=== PATIENT | female | born 1975 | race Caucasian/White ===

== ENCOUNTER 2017-06-13 01:12 | Emergency (ER) | payer SELFPAY ==
[2017-06-13] MEDS ORDERED: Alum Hydrox/Mag Hydrox/Simeth 15 ML, Lidocaine 2% 15 ML PO ONE ×2 (01:29)
--- NOTE | 2017-06-13 01:36 | EDM.PDOC ---
ED HPI GENERAL MEDICAL PROBLEM - General Chief Complaint: Chest Pain Stated Complaint: UP SET STOMACH Time Seen by Provider: 06/13/17 01:20 Source of Information: Reports: Patient History Limitations: Reports: No Limitations - History of Present Illness INITIAL COMMENTS - FREE TEXT/NARRATIVE: 42-year-old female with recurring brief chest pains that have been occurring for several weeks, she has an appointment in 2 days to discuss this with her primary provider but tonight it was worse than usual so came in to have it checked. She started getting concerned that it may be cardiac related. The pain waxes and wanes, and recurs with burning substernally that lasts about 5 seconds and goes away. No shortness of breath, no nausea or vomiting. Tends to be worse when laying down and on an empty stomach. She tried some Tums earlier tonight and it didn't help much. 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: Endocrine/Metabolic History: Reports: Obesity/BMI 30+ - Infectious Disease History Infectious Disease History: Reports: Chicken Pox - Past Surgical History Female Surgical History: Reports: Section Social & Family History - Tobacco Use Smoking Status *Q: Current Every Day Smoker Years of Tobacco use: 25 Packs/Tins Daily: 1 - Caffeine Use Caffeine Use: Reports: Coffee, Energy Drinks, Soda - Recreational Drug Use Recreational Drug Use: No ED ROS GENERAL - Review of Systems Review Of Systems: See Below Constitutional: Denies: Fever, Chills Respiratory: Denies: Shortness of Breath, Cough Cardiovascular: Reports: Chest Pain GI/Abdominal: Reports: Abdominal Pain. Denies: Constipation, Diarrhea, Nausea, Vomiting : Reports: No Symptoms Skin: Reports: No Symptoms Neurological: Reports: No Symptoms ED EXAM, GENERAL - Physical Exam Exam: See Below Exam Limited By: No Limitations General Appearance: Alert, No Apparent Distress Throat/Mouth: Normal Inspection Respiratory/Chest: No Respiratory Distress, Lungs Clear Cardiovascular: Regular Rate, Rhythm GI/Abdominal: Soft, Tender (Some tenderness to palpation over the epigastric area, pain worsened when the patient laid down) Extremities: Normal Inspection Neurological: Alert, Oriented Course - Vital Signs Last Recorded V/S: Last Vital Signs Temp 98.6 F 06/13/17 01:19 Pulse 69 06/13/17 01:19 Resp 16 06/13/17 01:19 BP 114/52 L 06/13/17 01:19 Pulse Ox 97 06/13/17 01:19 - Orders/Labs/Meds Meds: Medications Discontinued Medications Generic Name Dose Route Start Last Admin Trade Name Sophia PRN Reason Stop Dose Admin Al Hydroxide/Mg Hydroxide 15 0 ml 06/13/17 01:29 06/13/17 01:35 ml/ Lidocaine HCl 15 ml PO 06/13/17 01:30 15 ml ONETIME ONE Administration Pantoprazole Sodium 40 mg 06/13/17 01:58 06/13/17 02:05 Protonix PO 06/13/17 01:59 40 mg ONETIME ONE Administration - Re-Assessments/Exams Free Text/Narrative Re-Assessment/Exam: 06/13/17 02:04 Patient was placed on a cardiac/vascular sonographer that showed normal sinus rhythm. She was reassured that this is not cardiac pain, and was given a GI cocktail. It did not take away her pain but an improvement. She was given 40 mg of Protonix orally, and told to keep her appointment with her primary provider tomorrow. Departure - Departure Time of Disposition: 02:15 Disposition: Home, Self-Care 01 Condition: Good Clinical Impression: Gastroesophageal reflux disease Qualifiers: Esophagitis presence: esophagitis presence not specified Qualified Code(s): K21.9 - Gastro-esophageal reflux disease without esophagitis - Discharge Information Instructions: Nonspecific Chest Pain, [id number] Referrals: PCP,None [Primary Care Provider] - Forms: ED Department Discharge Care Plan Goals: Keep your appointment tomorrow with your primary provider. I would recommend daily Prilosec for at least 2-3 weeks but you can discuss this at your appointment.
[2017-06-13] MEDS ORDERED: Pantoprazole 40 MG Tab.CR PO ONE (01:58)
== END 2017-06-13 02:15 | disposition home or self-care (01) ==
LOC: JP.ED 01:12
DX: K21.9 Gastro-esophageal reflux disease without esophagitis (principal); E66.9 Obesity, unspecified; F17.210 Nicotine dependence, cigarettes, uncomplicated; Z68.36 Body mass index [BMI] 36.0-36.9, adult
CPT/HCPCS: 99285; A9270; 99284

== ENCOUNTER 2017-07-14 06:27 | Day surgery (SDC) | payer MEDICAID ==
[2017-07-14] MEDS ORDERED: Lactated Ringers 1,000 ML IV SCH (07:00)
[2017-07-14] MEDS ORDERED: fentaNYL 100 MCG/2 ML SDV ONE (07:30)
[2017-07-14] MEDS ORDERED: Propofol 200 MG/20 ML SDV ONE (07:30)
[2017-07-14] MEDS ORDERED: Midazolam 1 MG/ML 2 ML SDV ONE (07:30)
--- NOTE | 2017-07-14 09:33 | OR ---
DATE OF PROCEDURE: 07/14/2017 PREOPERATIVE DIAGNOSIS: Gastroesophageal reflux disease. POSTOPERATIVE DIAGNOSIS: Gastroesophageal reflux disease. PROCEDURE: Esophagogastroduodenoscopy with biopsy of gastroesophageal junction. ANESTHESIA: IV anesthesia with monitored anesthesia care. INDICATION: This 42-year-old white female is referred for upper endoscopy because of symptoms of gastroesophageal reflux disease. I counseled her for upper endoscopy with possible biopsy, including risks and alternatives, and she gave her informed consent to proceed. DESCRIPTION OF PROCEDURE: The patient was placed in the left lateral decubitus position. IV anesthesia was administered by the Anesthesia Service. Time-out was held. The flexible video Olympus upper endoscope was passed through her mouth, down her esophagus, and into her stomach. The scope was easily passed through the pylorus, into the duodenum, reaching its third portion. The scope was then slowly withdrawn, examining the mucosa throughout. The duodenal mucosa appeared unremarkable. The scope was brought back through the pylorus into the antrum. This appeared unremarkable. The scope was retroflexed. The proximal stomach appeared unremarkable, although, there was some bile present. The scope was straightened and brought up through the GE junction. This showed evidence of chronic inflammation. The Z-line was fairly straight. We did obtain biopsies of the gastroesophageal junction. The scope was then brought proximal through the remainder of the esophagus, which otherwise appeared unremarkable and it was removed. She tolerated the procedure well. Octaviano Almazan MD /[id number]
== END 2017-07-14 09:15 | disposition home or self-care (01) ==
LOC: JP.SDS 06:27
PROVIDERS: ATTEND Surgery
DX: K29.50 Unspecified chronic gastritis without bleeding (principal); K21.0 Gastro-esophageal reflux disease with esophagitis; J45.909 Unspecified asthma, uncomplicated; F41.9 Anxiety disorder, unspecified; F32.9 Major depressive disorder, single episode, unspecified; E66.9 Obesity, unspecified; F17.210 Nicotine dependence, cigarettes, uncomplicated
CPT/HCPCS: 43239; 81025; J2250; J2704; J3010; J7120; 88305

== ENCOUNTER 2017-11-29 23:00 | Emergency (ER) | payer BC, MEDICAID ==
--- NOTE | 2017-11-30 00:41 | EDM.PDOC ---
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 She was having some cramping and it was fairly heavy tonight so she called the phone nurse and she was advised to come in. Since that time it is calmed down, cramping is better. Bleeding has slowed down as well. 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 History: IUD Endocrine/Metabolic History: Reports: Obesity/BMI 30+ Dermatologic History: Reports: Eczema - Infectious Disease History Infectious Disease History: Reports: Chicken Pox - Past Surgical History Female Surgical History: Reports: Section, Other (See Below) Other Female Surgeries/Procedures: IUD Social & Family History - Tobacco Use Smoking Status *Q: Current Every Day Smoker Years of Tobacco use: 25 Packs/Tins Daily: 1 - Caffeine Use Caffeine Use: Reports: Coffee - Recreational Drug Use Recreational Drug Use: No ED ROS GENERAL - Review of Systems Review Of Systems: See Below Constitutional: Denies: Fever, Chills Respiratory: Denies: Shortness of Breath Cardiovascular: Denies: Chest Pain GI/Abdominal: Reports: Abdominal Pain (Lower abdomen has been cramping over the past 12 hours). Denies: Nausea, Vomiting Musculoskeletal: Reports: No Symptoms Neurological: Reports: No Symptoms ED EXAM, GENERAL - Physical Exam Exam: See Below Exam Limited By: No Limitations General Appearance: Alert, No Apparent Distress Respiratory/Chest: No Respiratory Distress GI/Abdominal: Tender (Some vague tenderness to palpation in the left lower quadrant, no guarding or rebound) Neurological: Alert, Oriented Skin Exam: Warm, Dry Course - Vital Signs Last Recorded V/S: Last Vital Signs Temp 97.9 F 11/29/17 23:59 Pulse 65 11/29/17 23:59 Resp 14 11/29/17 23:59 BP 120/76 11/29/17 23:59 Pulse Ox 97 11/29/17 23:59 - Orders/Labs/Meds Labs: Laboratory Tests 11/30/17 Range/Units 00:20 WBC 11.2 H (4.5-11.0) K/uL RBC 4.18 (3.30-5.50) M/uL Hgb 13.3 (12.0-15.0) g/dL Hct 39.6 (36.0-48.0) % MCV 95 (80-98) fL MCH 32 H (27-31) pg MCHC 34 (32-36) % Plt Count 310 (150-400) K/uL Neut % (Auto) 65 (36-66) % Lymph % (Auto) 26 (24-44) % Finney % (Auto) 6 (2-6) % Eos % (Auto) 2 (2-4) % Baso % (Auto) 0 (0-1) % - Re-Assessments/Exams Free Text/Narrative Re-Assessment/Exam: 11/30/17 00:39 CBC was drawn for baseline hemoglobin, white count was normal and hemoglobin was 13.3. She'll recheck in 24-48 hours if bleeding hasn't improving satisfactorily. I explained to her this was likely just an anovulatory cycle which can happen. Departure - Departure Time of Disposition: 00:53 Disposition: Home, Self-Care 01 Condition: Good Clinical Impression: Anovulatory (dysfunctional uterine) bleeding - Discharge Information Instructions: Dysfunctional Uterine Bleeding Referrals: PCP,None [Primary Care Provider] - Forms: ED Department Discharge Care Plan Goals: No reason for further treatment or workup unless bleeding persists for another 2 -3 days or worsens at any time. Activity as tolerated.
== END 2017-11-30 00:53 | disposition home or self-care (01) ==
LOC: JP.ED 23:00
DX: N93.9 Abnormal uterine and vaginal bleeding, unspecified (principal); F17.210 Nicotine dependence, cigarettes, uncomplicated; Z79.899 Other long term (current) drug therapy
CPT/HCPCS: 36415; 85025; 99284

== ENCOUNTER 2018-02-04 12:18 | Emergency (ER) | payer BC ==
--- NOTE | 2018-02-04 13:07 | EDM.PDOC ---
ED HPI GENERAL MEDICAL PROBLEM - General Chief Complaint: Respiratory Problem Stated Complaint: CHEST TIGHTNESS AND CONGESTION Time Seen by Provider: 02/04/18 12:57 Source of Information: Reports: Patient, RN Notes Reviewed History Limitations: Reports: No Limitations - History of Present Illness INITIAL COMMENTS - FREE TEXT/NARRATIVE: 42-year-old female presents to the emergency department today for ongoing breathing difficulties and unable to work. She has a known history of asthma was evaluated in the urgent care clinic started on antibiotics of azithromycin as well as 5 day course of prednisone at 40 mg once a day she also has a nebulizer at home that she has been using. She states she slowly getting better but not ready to go back to work and she still having difficulty breathing and his wheezing - Related Data Allergies Allergy/AdvReac Type Severity Reaction Status Date / Time No Known Allergies Allergy Verified 02/04/18 12:48 Home Meds: Home Meds Albuterol [IJD: Ventolin HFA] 2 puff INH Q4H PRN 07/12/17 [History] Omeprazole 20 mg PO DAILY 11/29/17 [History] Albuterol Sulfate 02/04/18 [History] Azithromycin [Zithromax] 02/04/18 [History] Benzonatate 02/04/18 [History] predniSONE [Prednisone] 02/04/18 [History] Past Medical History Respiratory History: Reports: Asthma 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: , 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 (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) 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 Denies: Sputum Cardiovascular: Reports: No Symptoms ED EXAM, GENERAL - Physical Exam Exam: See Below Exam Limited By: No Limitations General Appearance: Alert, WD/WN, No Apparent Distress Respiratory/Chest: No Respiratory Distress, No Accessory Muscle Use, Wheezing Cardiovascular: Regular Rate, Rhythm, No Murmur Course - Vital Signs Last Recorded V/S: Last Vital Signs Temp 97.4 F 02/04/18 12:53 Pulse 79 02/04/18 12:53 Resp 15 02/04/18 12:53 BP 117/66 02/04/18 12:53 Pulse Ox 96 02/04/18 12:53 Departure - Departure Time of Disposition: 13:06 Disposition: Home, Self-Care 01 Condition: Fair Clinical Impression: Exacerbation of asthma Qualifiers: Asthma severity: moderate Asthma persistence: persistent Qualified Code(s): J45.41 - Moderate persistent asthma with (acute) exacerbation - Discharge Information Referrals: Carolyn Beltran MD [Primary Care Provider] - Forms: ED Department Discharge, ED Return to Work/School Form Additional Instructions: Continue on antibiotics and steroids follow-up with primary care in 2-3 days if no improvement call return to the emergency department worsening of symptoms - Assessment/Plan Plan: Assessment Acuity = acute Site and laterality = asthma exacerbation slowly resolving Etiology = unclear etiology Manifestations = wheezing Location of injury = Home Lab values = none Plan Continue on antibiotics and steroids as well as breathing treatments work note was provided follow-up with primary care in 2-3 days if no improvement This note was dictated using [employer] voice recognition software please call with any questions on syntax or grammar.
== END 2018-02-04 13:59 | disposition home or self-care (01) ==
LOC: JP.ED 12:18
DX: J45.41 Moderate persistent asthma with (acute) exacerbation (principal); F17.210 Nicotine dependence, cigarettes, uncomplicated; Z79.899 Other long term (current) drug therapy
CPT/HCPCS: 99285

== ENCOUNTER 2018-06-05 01:04 | Emergency (ER) | payer BC ==
[2018-06-05] MEDS ORDERED: Ketorolac 60 MG/2 ML SDV IM ONE (01:44)
--- NOTE | 2018-06-05 01:46 | EDM.PDOC ---
ED HPI GENERAL MEDICAL PROBLEM - General Chief Complaint: Lower Extremity Injury/Pain Stated Complaint: RIGHT ANKLE PAIN Time Seen by Provider: 06/05/18 01:42 Source of Information: Reports: Patient, RN Notes Reviewed History Limitations: Reports: No Limitations - History of Present Illness INITIAL COMMENTS - FREE TEXT/NARRATIVE: 42-year-old female presents to the emergency department today with complaint of right ankle pain, she does wear boots stands a lot at work goes up and down stairs is on concrete a lot the pain is been progressively getting worse over the lack 6 days she does not recall any particular injury Right Lower Leg Pain Score (Numeric/FACES): 8 - Related Data Allergies Allergy/AdvReac Type Severity Reaction Status Date / Time No Known Allergies Allergy Verified 06/05/18 01:21 Home Meds: Home Meds Albuterol [IJD: Ventolin HFA] 2 puff INH Q4H PRN 07/12/17 [History] Omeprazole 20 mg PO DAILY 11/29/17 [History] Past Medical History Respiratory History: Reports: Asthma 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: IUD Endocrine/Metabolic History: Reports: Obesity/BMI 30+ Dermatologic History: Reports: Eczema - Infectious Disease History Infectious Disease History: Reports: Chicken Pox - Past Surgical History Female Surgical History: Reports: Section, Other (See Below) Other Female Surgeries/Procedures: IUD Social & Family History - Tobacco Use Smoking Status *Q: Current Every Day Smoker Years of Tobacco use: 20 Packs/Tins Daily: 1 Used Tobacco, but Quit: No Second Hand Smoke Exposure: Yes - Caffeine Use Caffeine Use: Reports: Coffee, Energy Drinks - Alcohol Use Days Per Week of Alcohol Use: 0 - Recreational Drug Use Recreational Drug Use: No Review of Systems - Review of Systems Review Of Systems: See Below Musculoskeletal: Reports: Other (Lower leg pain) Skin: Reports: No Symptoms Neurological: Reports: No Symptoms ED EXAM, GENERAL - Physical Exam Exam: See Below Free Text/Narrative:: Examination of the right lower extremity abnormal appreciate any erythema there is no edema there is no tenderness to the calf she is tender over the anterior portion of the lower tib-fib area pedal pulse is +2 Course - Vital Signs Last Recorded V/S: Last Vital Signs Temp 98.8 F 06/05/18 01:32 Pulse 71 06/05/18 01:32 Resp 16 06/05/18 01:32 BP 109/63 06/05/18 01:32 Pulse Ox 98 06/05/18 01:32 - Orders/Labs/Meds Orders: Active Orders 24 hr Category Date Time Status Ankle Min 3V Rt [CR] Stat Exams 06/05/18 01:44 Taken Meds: Medications Discontinued Medications Generic Name Dose Route Start Last Admin Trade Name Sophia PRN Reason Stop Dose Admin Ketorolac Tromethamine 60 mg 06/05/18 01:44 06/05/18 01:57 Toradol IM 06/05/18 01:45 60 mg ONETIME ONE Administration Departure - Departure Time of Disposition: 02:57 Disposition: Home, Self-Care 01 Condition: Fair Clinical Impression: Right ankle pain Qualifiers: Chronicity: acute Qualified Code(s): M25.571 - Pain in right ankle and joints of right foot - Discharge Information Referrals: Carolyn Beltran MD [Primary Care Provider] - Forms: ED Department Discharge, ED Return to Work/School Form - My Orders Last 24 Hours: My Active Orders 06/05/18 01:44 Ankle Min 3V Rt [CR] Stat - Assessment/Plan Last 24 Hours: My Active Orders 06/05/18 01:44 Ankle Min 3V Rt [CR] Stat Plan: Assessment Acuity = acute Site and laterality = right ankle pain Etiology = suspicious for repetitive motion injury Manifestations = none Location of injury = work Lab values = x-ray shows no acute process per radiology Plan Did discuss the possibility that this is a work-related injury, may be related to her foot where plan is take couple days off reevaluate her foot wear, prescription written for hydrocodone 5/325 one tab by mouth 3-4 hours when necessary total #4 This note was dictated using [employer] recognition software please call with any questions on syntax or grammar.
== END 2018-06-05 03:05 | disposition home or self-care (01) ==
LOC: JP.ED 01:04
DX: M25.571 Pain in right ankle and joints of right foot (principal); E66.9 Obesity, unspecified; F17.210 Nicotine dependence, cigarettes, uncomplicated
CPT/HCPCS: 73610; 96372; 99284; J1885

== ENCOUNTER 2019-08-09 20:19 | Emergency (ER) | payer BC ==
[2019-08-09] MEDS ORDERED: Lidocaine 1% with EPINEPHrine 1:100,000 50 ML MDV INFILT ONE (21:17)
--- NOTE | 2019-08-09 21:18 | EDM.PDOC ---
ED HPI GENERAL MEDICAL PROBLEM - General Chief Complaint: Laceration Stated Complaint: CUT ON RT HAND Time Seen by Provider: 08/09/19 21:10 Source of Information: Reports: Patient History Limitations: Reports: No Limitations - History of Present Illness INITIAL COMMENTS - FREE TEXT/NARRATIVE: Patient presents for evaluation of a laceration to the right hand. She was using a food slicer and inadvertently contacted the slicing blade in the vicinity of her right thumb. There was moderate bleeding at home and she presented for further evaluation. No other injuries apart from the right thumb/ hand region. 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) - Related Data Allergies Allergy/AdvReac Type Severity Reaction Status Date / Time No Known Allergies Allergy Verified 08/09/19 20:31 Home Meds: Home Meds Albuterol [IJD: Ventolin HFA] 2 puff INH Q4H PRN 07/12/17 [History] Omeprazole 20 mg PO DAILY 11/29/17 [History] Fluticasone/Salmeterol [Advair 100-50] 1 puff INH BID 08/09/19 [History] Past Medical History Respiratory History: Reports: Asthma, COPD 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 Endocrine/Metabolic History: Reports: Obesity/BMI 30+ Dermatologic History: Reports: Eczema - Infectious Disease History Infectious Disease History: Reports: Chicken Pox - Past Surgical History Female Surgical History: Reports: Section, Other (See Below) Other Female Surgeries/Procedures: IUD Social & Family History - Family History Family Medical History: Noncontributory - Tobacco Use Smoking Status *Q: Current Every Day Smoker Years of Tobacco use: 25 Packs/Tins Daily: 1 - Caffeine Use Caffeine Use: Reports: Coffee - Alcohol Use Days Per Week of Alcohol Use: 3 Number of Drinks Per Day: 2 Total Drinks Per Week: 6 - Recreational Drug Use Recreational Drug Use: No ED ROS GENERAL - Review of Systems Review Of Systems: Comprehensive ROS is negative, except as noted in HPI. ED EXAM, SKIN/RASH Exam: See Below Text/Narrative:: This is a comfortable-appearing adult female on the cart in room 7. There are 4 x 4 dressings applied over her injured area. Exam Limited By: No Limitations General Appearance: No Apparent Distress Cardiovascular: Regular Rate, Rhythm Extremities: Other (There is a 1 x 3 cm area of superficially avulsed skin along the right thenar eminence. In the center of this avulsed area there is steady oozing from a defined point of soft tissue. Patient has full use of the right thumb and it is neurovascularly intact.) ED SKIN PROCEDURES - Laceration/Wound Repair Right Anterior Lateral Hand Appearance: Superficial, Clean Distal NVT: Neuro & Vascular Intact Anesthetic Type: Local Local Anesthesia - Lidocaine (Xylocaine): 1% with EPI Local Anesthetic Volume: 2cc Skin Prep: Saline Saline Irrigation (cc's): 20 Exploration/Debridement/Repair: No Foreign Material Found Closed with: Sutures Lac/Wound length In cm: 3 Suture Size: 4-0 # of Sutures: 1 Suture Type: Nylon Tetanus Status Addressed: Yes Course - Vital Signs Last Recorded V/S: Last Vital Signs Temp 37.0 C 08/09/19 20:39 Pulse 81 08/09/19 20:39 Resp 16 08/09/19 20:39 BP 128/91 H 08/09/19 20:39 Pulse Ox 97 08/09/19 20:39 - Orders/Labs/Meds Meds: Medications Discontinued Medications Generic Name Dose Route Start Last Admin Trade Name Sophia PRN Reason Stop Dose Admin Bacitracin 1 dose 08/09/19 22:20 08/09/19 22:35 Bacitracin Oint 1 Gm TOP 08/09/19 22:21 1 dose ONETIME ONE Administration Lidocaine/Epinephrine 2 ml 08/09/19 21:17 08/09/19 22:12 Xylocaine 1% With Epinephrine 1:100,000 INFILT 08/09/19 21:18 2 ml ONETIME ONE Administration - Re-Assessments/Exams Free Text/Narrative Re-Assessment/Exam: 08/09/19 23:47 The wound is primarily a superficial avulsion with a central venous oozing area. A single suture was used to approximate the oozing tissue. See procedure note. Bacitracin and a bandage were applied afterward. He should keep this dressing on and dry until Monday morning, 11 August. After that, routine soap and water washing is fine. They should apply bacitracin or similar first-aid ointment followed by Band-Aid covering until the area is healed. Suture can be removed in one week either here or with patient's primary care team. Antibiotics were not prescribed. Reasons to return to ER reviewed. Departure - Departure Time of Disposition: 22:20 Disposition: Home, Self-Care 01 Clinical Impression: Avulsion of skin of hand Qualifiers: Encounter type: initial encounter Laterality: right Qualified Code(s): S61.401A - Unspecified open wound of right hand, initial encounter - Discharge Information *PRESCRIPTION DRUG MONITORING PROGRAM REVIEWED*: Not Applicable *COPY OF PRESCRIPTION DRUG MONITORING REPORT IN PATIENT NATHALY: Not Applicable Instructions: Laceration Care, Adult, [id number] Referrals: Sia Lee PA-C [Primary Care Provider] - Forms: ED Department Discharge Additional Instructions: Keep this first bandage on and dry until Monday morning, 11 August. After that time, apply a small line of bacitracin or other first-aid ointment to the injured area and cover it with a Band-Aid each day. Depending on how active your hands are, you may need to change the Band-Aid more than once a day. Some apple cider-looking fluid coming from the wound is normal. The stitch that is there can be removed in one week either by your primary care provider or you can return here. Watch for redness around the injured area, pus drainage, increased pain and if you notice those return here. Sepsis Event Note - Evaluation Sepsis Screening Result: No Definite Risk - Focused Exam Vital Signs: Vital Signs Temp Pulse Resp BP Pulse Ox 08/09/19 20:39 37.0 C 81 16 128/91 H 97 Date Exam was Performed: 08/09/19 Time Exam was Performed: 23:41
[2019-08-09] MEDS ORDERED: Bacitracin Oint 1 GM U/D Packet TOP ONE (22:20)
== END 2019-08-09 22:36 | disposition home or self-care (01) ==
LOC: JP.ED 20:19
DX: S61.411A Laceration without foreign body of right hand, initial encounter (principal); F17.210 Nicotine dependence, cigarettes, uncomplicated; J44.9 Chronic obstructive pulmonary disease, unspecified; E66.9 Obesity, unspecified; Z68.35 Body mass index [BMI] 35.0-35.9, adult; Z79.899 Other long term (current) drug therapy; W26.8XXA Contact with other sharp object(s), not elsewhere classified, initial encounter
CPT/HCPCS: 12002; 99282-25

== ENCOUNTER 2019-08-19 07:18 | Day surgery (SDC) | payer BC ==
[2019-08-19] MEDS ORDERED: Albuterol/Ipratropium 3.0-0.5 MG/3 ML Neb Soln NEB ONE (07:42)
[2019-08-19] MEDS ORDERED: Dextrose 5%-Lactated Ringers 1,000 ML IV SCH (07:45)
[2019-08-19] MEDS ORDERED: Glycopyrrolate 0.2 MG/ML 2 ML SDV IVPUSH ONE (07:55)
[2019-08-19] MEDS ORDERED: Midazolam 1 MG/ML 2 ML SDV ONE (08:16)
[2019-08-19] MEDS ORDERED: Propofol 200 MG/20 ML SDV ONE (08:16)
[2019-08-19] MEDS ORDERED: fentaNYL 100 MCG/2 ML SDV ONE (08:16)
--- NOTE | 2019-08-21 12:00 | OR ---
DATE OF PROCEDURE: 08/19/2019 SURGEON: Jared Purdy MD PREOPERATIVE DIAGNOSIS: History of Lacey's esophagus. POSTOPERATIVE DIAGNOSES: 1. History of Lacey's esophagus with small hiatal hernia and minimal recurrent inflammation of esophagogastric junction. 2. Superficial duodenal ulcer. OPERATIVE PROCEDURES: Esophagogastroduodenoscopy with: 1. Biopsy of esophagogastric junction for histologic evaluation. 2. Biopsies of antrum for CLOtest. ANESTHESIA: IV sedation. INDICATION FOR PROCEDURE: The patient is a 44-year-old with known history of Lacey's esophagus, who presents for followup endoscopy for surveillance of the Lacey's esophagus. Potential risks of the procedure including bleeding and perforation were discussed, and the patient wishes to proceed. DETAILS OF PROCEDURE: The patient was taken to the operating room and placed in a left lateral decubitus position. IV sedation was administered, after which the upper GI endoscope was passed orally through the length of the esophagus and into the stomach with retroflexion view of the fundus, thereafter through the pyloric channel into the junction of the third and fourth portions of the duodenum. The patient was noted to have a normal hypopharynx, larynx, upper esophageal sphincter, and esophageal body. At the EG junction, there was a small hiatal hernia. There was some upward extension of the gastroesophageal mucosal line consistent with Lacey's esophagus. There was very minimal recurrent inflammation present and no plaquing or stricturing or other signs of neoplasia. Within the stomach apart from a small hiatal hernia, no abnormalities were noted. The patient did have a small very superficial duodenal ulcer present which was covered with a thin layer of fibrinous exudate. At this point, biopsies were taken from the antrum and sent for CLOtest for H pylori. Following this, multiple biopsies were obtained from the esophagogastric junction, sent for histologic evaluation. Minimal bleeding from the biopsy sites was seen and the procedure was then concluded. The patient recently has not been on her omeprazole due to lack of any reflux-type symptoms. She has been instructed to restart that which should help with the duodenal ulcer issue as well. If the CLOtest and assuming there is no dysplasia developing at the area of Lacey esophagus, the next upper endoscopy should be in roughly 2 years. We will contact the patient with the biopsy and CLOtest results. Jared Purdy MD /[id number]
== END 2019-08-19 10:37 | disposition home or self-care (01) ==
LOC: JP.SDS 07:18
PROVIDERS: ATTEND Surgery
DX: K22.70 Barrett's esophagus without dysplasia (principal); K44.9 Diaphragmatic hernia without obstruction or gangrene; K21.0 Gastro-esophageal reflux disease with esophagitis; K26.9 Duodenal ulcer, unspecified as acute or chronic, without hemorrhage or perforation; I10 Essential (primary) hypertension; J44.9 Chronic obstructive pulmonary disease, unspecified; E66.9 Obesity, unspecified; F17.200 Nicotine dependence, unspecified, uncomplicated; Z68.34 Body mass index [BMI] 34.0-34.9, adult
CPT/HCPCS: 43239; 81025; 87081; 94640; J2250; J2704; J3010; J3490; J7121; 88305; 88312; J7620-GY

== ENCOUNTER 2021-01-05 21:07 | Emergency (ER) | payer BC, OTHER ==
--- NOTE | 2021-01-05 21:34 | EDM.PDOC ---
ED HPI GENERAL MEDICAL PROBLEM - General Chief Complaint: Chest Pain Stated Complaint: CHEST PAIN Time Seen by Provider: 01/05/21 21:17 Source of Information: Reports: Patient History Limitations: Reports: No Limitations - History of Present Illness INITIAL COMMENTS - FREE TEXT/NARRATIVE: Bárbara is a 45-year-old female presenting to the ED for evaluation of acute onset of right-sided chest pain that started earlier today. The pain has been intermittent and worsens with inspiration. The patient had similar symptoms years ago was told it was due to stress. He does have a history for gastroesophageal reflux disease causing Lacey's esophagitis. She takes omeprazole 20 mg daily for this. She denies any fever, chills, change in cough, loss of taste or smell. She is a smoker and does have a history significant for COPD. She denies any heart history or family history of heart disease. She has not undergone vaccination for COVID-19 due to personal fears of the vaccination. She does state that he woke up this morning not feeling well. 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 Endocrine/Metabolic History: Reports: Obesity/BMI 30+ Dermatologic History: Reports: Eczema - Infectious Disease History Infectious Disease History: Reports: Chicken Pox - Past Surgical History GI Surgical History: Reports: EGD Female Surgical History: Reports: Section, Tubal Ligation, Other (See Below) Social & Family History - Family History Family Medical History: No Pertinent Family History - Caffeine Use Caffeine Use: Reports: Coffee ED ROS GENERAL - Review of Systems Review Of Systems: See Below Constitutional: Reports: No Symptoms, Malaise HEENT: Reports: No Symptoms Respiratory: Reports: Shortness of Breath, Pleuritic Chest Pain (Right-sided), Cough Cardiovascular: Reports: Chest Pain (Right-sided chest pain that worsens with inspiration) Endocrine: Reports: No Symptoms GI/Abdominal: Reports: Nausea : Reports: No Symptoms Musculoskeletal: Reports: No Symptoms Skin: Reports: No Symptoms Neurological: Reports: No Symptoms Psychiatric: Reports: No Symptoms Hematologic/Lymphatic: Reports: No Symptoms Immunologic: Reports: No Symptoms ED EXAM, GENERAL - Physical Exam Exam: See Below Exam Limited By: No Limitations General Appearance: Alert, No Apparent Distress, Anxious Eye Exam: Bilateral Eye: EOMI, PERRL Nose: Normal Inspection, Normal Mucosa Throat/Mouth: Normal Inspection, Normal Lips, Normal Oropharynx, Normal Voice, No Airway Compromise Head: Atraumatic, Normocephalic Neck: Normal Inspection, Supple, Non-Tender, Full Range of Motion Respiratory/Chest: No Respiratory Distress, Lungs Clear, Chest Non-Tender, Decreased Breath Sounds (Mild diminished breath sounds in the bases). No: Crackles, Rales, Rhonchi, Retractions Cardiovascular: Normal Peripheral Pulses, Regular Rate, Rhythm, No Murmur Peripheral Pulses: 2+: Radial (L), Radial (R), Posterior Tibial (L), Posterior Tibial (R) GI/Abdominal: Normal Bowel Sounds, Soft, Non-Tender Back Exam: Normal Inspection Extremities: Normal Inspection, No Pedal Edema Neurological: Alert, Oriented, Normal Cognition, No Motor/Sensory Deficits Psychiatric: Normal Affect, Normal Mood Skin Exam: Warm, Dry #1 Interpretation EKG Date: 01/05/21 Time: 21:14 Rhythm: NSR Rate (Beats/Min): 67 [place]: Normal P-Wave: Present QRS: Normal ST-T: Normal QT: Normal Comparison: NA - No Prior EKG Course - Vital Signs Last Recorded V/S: Last Vital Signs Temp 36.7 C 01/05/21 21:55 Pulse 63 01/05/21 21:55 Resp 19 01/05/21 21:55 BP 122/53 L 01/05/21 21:55 Pulse Ox 99 01/05/21 21:55 - Orders/Labs/Meds Orders: Active Orders 24 hr Category Date Time Status Chest 2V [CR] Stat Exams 01/05/21 21:14 Taken EKG 12 Lead [EK] Routine Ther 01/05/21 21:14 Ordered Labs: Laboratory Tests 01/05/21 01/05/21 01/05/21 Range/Units 21:26 21:26 21:26 WBC 10.7 (4.5-11.0) K/uL RBC 3.69 (3.30-5.50) M/uL Hgb 12.3 (12.0-15.0) g/dL Hct 36.1 (36.0-48.0) % MCV 98 (80-98) fL MCH 33 H (27-31) pg MCHC 34 (32-36) % Plt Count 253 (150-400) K/uL Neut % (Auto) 61.9 (36-66) % Lymph % (Auto) 29.9 (24-44) % [place] % (Auto) 5.5 (2-6) % Eos % (Auto) 2.1 (2-4) % Baso % (Auto) 0.6 (0-1) % D-Dimer, Quantitative 367.88 (0.0-500.0) ng/mL Sodium 139 L (140-148) mmol/L Potassium 3.9 (3.6-5.2) mmol/L Chloride 106 (100-108) mmol/L Carbon Dioxide 25 (21-32) mmol/L Anion Gap 11.9 (5.0-14.0) mmol/L BUN 22 H (7-18) mg/dL Creatinine 0.8 (0.6-1.0) mg/dL Est Cr Clr Drug Dosing 90.53 mL/min Estimated GFR (MDRD) > 60 (>60) Glucose 120 H (74-106) mg/dL Calcium 8.4 L (8.5-10.1) mg/dL Total Bilirubin 0.2 (0.2-1.0) mg/dL AST 11 L (15-37) U/L ALT 15 (12-78) U/L Alkaline Phosphatase 78 (46-116) U/L Troponin I < 0.017 (0.000-0.056) ng/mL Total Protein 6.4 (6.4-8.2) g/dL Albumin 3.1 L (3.4-5.0) g/dL Globulin 3.3 (2.3-3.5) g/dL Albumin/Globulin Ratio 0.9 L (1.2-2.2) - Re-Assessments/Exams Free Text/Narrative Re-Assessment/Exam: 01/05/21 22:26 reviewed the patient's labs showing a normal CBC and comprehensive metabolic panel. Troponin is negative at less than 0.017 and the D-dimer is negative at 367. I reviewed the chest x-ray which shows no acute infiltrates. Because there is a pleuritic component of this it would not be out of the question for this to be acute pleurisy causing pleurodynia which would give her a normal white count. This also could be esophageal reflux secondary to stress as reports she was with this diagnosed before. I recommend the use of nonsteroidal anti-inflammatories and we will put her on Toradol 10 mg 4 times daily for the next 5 days to reduce inflammation. She should take this with food as not to increase her risk for gastritis or esophagitis. At this time, the patient is suitable for discharge home in satisfactory condition. Indications to return to the ED were discussed. Departure - Departure Time of Disposition: 22:30 Disposition: Home, Self-Care 01 Clinical Impression: Pleurodynia, viral, Pleurisy Gastroesophageal reflux disease Qualifiers: Esophagitis presence: with esophagitis Esophagitis bleeding: without hemorrhage Qualified Code(s): K21.00 - Gastro-esophageal reflux disease with esophagitis, without bleeding Instructions: Gastroesophageal Reflux Disease, Adult, [id number], Pleurisy Referrals: PCP,None [Primary Care Provider] - Forms: ED Department Discharge Care Plan Goals: Your work-up today shows that you probably have a viral syndrome causing inflammation in the lining of the lung called pleurodynia or pleurisy. I would recommend managing this with a fairly potent nonsteroidal anti-inflammatory. We will put you on Toradol 10 mg by mouth every 6 hours as needed for pain control. This medication has been sent out to the [facility] so you may have it tonight. There was no evidence in your work-up of any blood clot, pneumonia, or heart involvement. I want you to make sure that you take the Toradol with some food as to not upset the stomach or esophagus. Toradol can be quite acidic and cause irritation to the stomach and esophagus. Sepsis Event Note (ED) - Focused Exam Vital Signs: Vital Signs Temp Pulse Resp BP Pulse Ox 01/05/21 21:55 36.7 C 63 19 122/53 L 99 01/05/21 21:52 63 19 122/53 L 99 01/05/21 21:33 36.7 C 67 14 112/46 L 99 - Problem List & Annotations (1) Gastroesophageal reflux disease SNOMED Code(s): 560320417 Code(s): K21.9 - GASTRO-ESOPHAGEAL REFLUX DISEASE WITHOUT ESOPHAGITIS Status: Acute Priority: High Current Visit: Yes Qualifiers: Esophagitis presence: with esophagitis Esophagitis bleeding: without hemorrhage Qualified Code(s): K21.00 - Gastro-esophageal reflux disease with esophagitis, without bleeding (2) Pleurisy SNOMED Code(s): 116182878 Code(s): R09.1 - PLEURISY Status: Acute Priority: High Current Visit: Yes (3) Pleurodynia, viral SNOMED Code(s): 09019063 Code(s): B33.0 - EPIDEMIC MYALGIA Status: Acute Priority: High Current Visit: Yes - Problem List Review Problem List Initiated/Reviewed/Updated: Yes - My Orders Last 24 Hours: My Active Orders 01/05/21 21:14 Chest 2V [CR] Stat EKG 12 Lead [EK] Routine - Assessment/Plan Last 24 Hours: My Active Orders 01/05/21 21:14 Chest 2V [CR] Stat EKG 12 Lead [EK] Routine
--- NOTE | 2021-01-06 09:16 | CR ---
CHEST: 2 view CLINICAL HISTORY:Right-sided chest pain COMPARISON:None FINDINGS: The heart size, pulmonary vascularity and hilar structures are normal. No infiltrate effusion or pneumothorax is seen. IMPRESSION: No acute cardiopulmonary process.
== END 2021-01-05 22:59 | disposition home or self-care (01) ==
LOC: JP.ED 21:07
DX: K21.00 Gastro-esophageal reflux disease with esophagitis, without bleeding (principal); B33.0 Epidemic myalgia; R09.1 Pleurisy; J44.9 Chronic obstructive pulmonary disease, unspecified; E66.9 Obesity, unspecified; Z68.32 Body mass index [BMI] 32.0-32.9, adult; Z91.040 Latex allergy status; Z79.899 Other long term (current) drug therapy
CPT/HCPCS: 36415; 71046; 71046-26; 80053; 84484; 85025; 85379; 93005; 99285-25

== ENCOUNTER 2021-04-12 06:54 | Day surgery (SDC) | payer BC, OTHER ==
[2021-04-12] MEDS ORDERED: Propofol 200 MG/20 ML SDV ONE ×2 (07:02→09:15)
[2021-04-12] MEDS ORDERED: fentaNYL 100 MCG/2 ML SDV ONE (07:03)
[2021-04-12] MEDS ORDERED: Midazolam 1 MG/ML 2 ML SDV ONE (07:03)
[2021-04-12] MEDS ORDERED: Sodium Chloride 0.9% 1,000 ML IV SCH (07:30)
--- NOTE | 2021-04-12 10:23 | OR ---
DATE OF PROCEDURE: 04/12/2021 SURGEON: Ja Luna MD PROCEDURE: Colonoscopy. FINDINGS: 1. Polyp at 25 cm, completely removed using endoscopic mucosal resection technique. 2. Random biopsy of very mild inflammation in the rectum. PREOPERATIVE DIAGNOSIS: Rectal pain. POSTOPERATIVE DIAGNOSIS: Rectal pain. RISKS: Risks, benefits, alternatives, and limitations including, but not limited to infection, bleeding, perforation, false positives and false negatives were explained to the patient and the patient wished to proceed. PROCEDURE IN DETAIL: The patient was placed in left lateral position. Digital rectal exam was performed without abnormality. Scope was introduced and advanced atraumatically to the ileocecal valve. A photo was taken of appendiceal orifice. Scope was brought back to the ascending, transverse, descending colon, and retroflexed. No evidence of old or new blood. No masses. No diverticulosis. The patient had a pedunculated polyp, which was resected using EMR technique including submucosal injection for elevation purposes using Eliz ink. This was resected with hot snare wire device. No abnormal bleeding was noted after removal. Within the rectum, these was a very mild inflammation, biopsied using cold biopsy forceps. No abnormalities on retroflexion. The patient tolerated procedure well. Ja Luna MD /[id number]
== END 2021-04-12 10:25 | disposition home or self-care (01) ==
LOC: JP.SDS 06:54
PROVIDERS: ATTEND Surgery
DX: D12.6 Benign neoplasm of colon, unspecified (principal); K62.89 Other specified diseases of anus and rectum; F17.200 Nicotine dependence, unspecified, uncomplicated; J45.909 Unspecified asthma, uncomplicated; K21.9 Gastro-esophageal reflux disease without esophagitis
CPT/HCPCS: 45380; 45390; 81025; J2250; J2704; J3010; J7030

== ENCOUNTER 2021-08-20 05:22 | Day surgery (SDC) | payer BC, OTHER ==
[2021-08-20] MEDS ORDERED: Glycopyrrolate 0.2 MG/ML 2 ML SDV IVPUSH ONE (06:40)
[2021-08-20] MEDS ORDERED: Dextrose 5%-Lactated Ringers 1,000 ML IV SCH (06:40)
[2021-08-20] MEDS ORDERED: fentaNYL 100 MCG/2 ML SDV ONE (07:13)
[2021-08-20] MEDS ORDERED: Midazolam 1 MG/ML 2 ML SDV ONE (07:13)
[2021-08-20] MEDS ORDERED: Propofol 200 MG/20 ML SDV ONE (07:14)
== END 2021-08-20 08:30 | disposition home or self-care (01) ==
LOC: JP.SDS 05:22
PROVIDERS: ATTEND Surgery
DX: K21.00 Gastro-esophageal reflux disease with esophagitis, without bleeding (principal); K29.90 Gastroduodenitis, unspecified, without bleeding; K44.9 Diaphragmatic hernia without obstruction or gangrene; F41.9 Anxiety disorder, unspecified; E66.9 Obesity, unspecified; J45.909 Unspecified asthma, uncomplicated; Z68.33 Body mass index [BMI] 33.0-33.9, adult
CPT/HCPCS: 81025; 87081; 88305; J2250; J2704; J3010; J3490; J7121

== ENCOUNTER 2022-03-18 07:20 | Day surgery (SDC) | payer BC ==
[~2022-03-18 07:20] MED LIST: Midazolam 1 MG/ML 2 ML SDV ONE; Propofol 200 MG/20 ML SDV ONE; fentaNYL 50 MCG/ML SDV ONE
[2022-03-18] MEDS ORDERED: Lactated Ringers 1,000 ML IV SCH (08:30)
[2022-03-18] MEDS ORDERED: Propofol 200 MG/20 ML SDV ONE ×2 (08:45→08:54)
[2022-03-18] MEDS ORDERED: Succinylcholine 200 MG/10 ML MDV ONE (08:54)
== END 2022-03-18 10:30 | disposition home or self-care (01) ==
LOC: JP.SDS 07:20
PROVIDERS: ATTEND Student in an Organized Health Care Education/Training Program
DX: Z12.11 Encounter for screening for malignant neoplasm of colon (principal); D12.3 Benign neoplasm of transverse colon; J45.909 Unspecified asthma, uncomplicated; F17.200 Nicotine dependence, unspecified, uncomplicated; F41.9 Anxiety disorder, unspecified; E66.9 Obesity, unspecified; Z86.010 Personal history of colon polyps
CPT/HCPCS: 45385; 81025; J2250; J2704; J3010; J7120; 88305; J0330

== ENCOUNTER 2022-09-22 07:32 | Emergency (ER) | payer BC ==
[2022-09-22] MEDS ORDERED: Ondansetron 4 MG Tab.DIS PO ONE (08:09)
[2022-09-22] MEDS ORDERED: Dicyclomine 10 MG Cap PO ONE (08:10)
[2022-09-22 08:23] LABS: BASOPHILS ABSOLUTE AUTO 0.05 K/uL (0.00-0.10); BASOPHILS PERCENT AUTO 0.5 % (0.1-1.3); EOSINOPHILS ABSOLUTE AUTO 0.07 K/uL (0.00-0.40); EOSINOPHILS PERCENT AUTO 0.7 % (0.0-5.4); HEMATOCRIT 40.4 % (34.3-46.0); HEMOGLOBIN 13.4 g/dL (11.2-15.5); IMMATURE GRAN ABSOLUTE AUTO 0.09 K/uL (0.00-0.23); IMMATURE GRAN PERCENT AUTO 0.9 % (0.0-0.7); LYMPHOCYTES ABSOLUTE AUTO 1.01 K/uL (0.8-3.3); LYMPHOCYTES PERCENT AUTO 9.6 % (11.4-47.7); MEAN CORPUSCULAR HGB CONC 33.2 g/dL (31.6-35.5); MEAN CORPUSCULAR VOLUME 99.5 fL (81.4-99.0); MONOCYTES ABSOLUTE AUTO 0.54 K/uL (0.20-0.90); MONOCYTES PERCENT AUTO 5.2 % (3.3-12.6); NEUTROPHILS ABSOLUTE AUTO 8.72 K/uL (1.0-7.6); NEUTROPHILS PERCENT AUTO 83.1 % (40.0-78.1); PLATELET COUNT,PLT 221 K/uL (130-375); RED BLOOD CELL COUNT 4.06 M/uL (3.77-5.24); WHITE BLOOD CELL COUNT,WBC 10.5 K/uL (3.2-11.0)
[2022-09-22 08:39] LABS: C-REACTIVE PROTEIN 14.39 mg/dL (0.0-0.3); CALCIUM 8.8 mg/dL (8.5-10.1); CREATININE 0.9 mg/dL (0.6-1.0); EST CRCL DRUG DOSING (CG) 78.79 mL/min; POTASSIUM,K 3.2 mmol/L (3.6-5.2)
[2022-09-22 08:42] LABS: ANION GAP 12.2 mmol/L (5.0-14.0)
[2022-09-22] MEDS ORDERED: Potassium Chloride 20 MEQ Tab.ER PO ONE (08:59)
[2022-09-24 14:12] LABS: ADENOVIRUS F 40/41 Not Detected (Not Detected); ASTROVIRUS Not Detected (Not Detected); C DIFFICILE TOXIN A/B Not Detected (Not Detected); CAMPYLOBACTER Detected (Not Detected); CRYPTOSPORIDIUM Not Detected (Not Detected); CYCLOSPORA CAYETANENSIS Not Detected (Not Detected); ENTAMOEBA HISTOLYTICA Not Detected (Not Detected); ENTEROAGGREGATIVE E COLI Not Detected (Not Detected); ENTEROPATHOGENIC E COLI Not Detected (Not Detected); ENTEROTOXIGENIC E COLI Not Detected (Not Detected); GIARDIA LAMBLIA Not Detected (Not Detected); NOROVIRUS GI/GII Not Detected (Not Detected); PLESIOMONAS SHIGELLOIDES Not Detected (Not Detected); ROTAVIRUS A Not Detected (Not Detected); SALMONELLA Not Detected (Not Detected); SAPOVIRUS Not Detected (Not Detected); SHIGA-TOXIN-PRODUCING E COLI Not Detected (Not Detected); SHIGELLA/ENTEROINVASIVE E COLI Not Detected (Not Detected); VIBRIO Not Detected (Not Detected); VIBRIO CHOLERAE Not Detected (Not Detected); YERSINIA ENTEROCOLITICA Not Detected (Not Detected)
== END 2022-09-22 09:24 | disposition home or self-care (01) ==
LOC: JP.ED 07:32
DX: A09 Infectious gastroenteritis and colitis, unspecified (principal); E87.6 Hypokalemia; J44.9 Chronic obstructive pulmonary disease, unspecified; E66.9 Obesity, unspecified; Z91.040 Latex allergy status; Z86.16 Personal history of COVID-19; Z72.0 Tobacco use; Z68.33 Body mass index [BMI] 33.0-33.9, adult
CPT/HCPCS: 36415; 80048; 85025; 86140; 87507; 99284; A9270; Q0162

== ENCOUNTER 2022-09-22 22:12 | Emergency (ER) | payer BC ==
[2022-09-22] MEDS ORDERED: Sodium Chloride 0.9% 10 ML Syringe FLUSH PRN (22:42)
[2022-09-22] MEDS: Sodium Chloride 0.9% 10 ML Syringe FLUSH ONE ×2 (22:54→23:05)
[2022-09-22] MEDS ORDERED: Sodium Chloride 0.9% 50 ML IV SCH (23:00)
[2022-09-22] MEDS ORDERED: Iopamidol 612 MG/ML 100 ML Bottle IV SCH (23:00)
== END 2022-09-23 00:16 | disposition home or self-care (01) ==
LOC: JP.ED 22:12
DX: A09 Infectious gastroenteritis and colitis, unspecified (principal); J44.9 Chronic obstructive pulmonary disease, unspecified; K21.9 Gastro-esophageal reflux disease without esophagitis; E66.9 Obesity, unspecified; Z91.040 Latex allergy status; Z86.16 Personal history of COVID-19; Z72.0 Tobacco use; Z68.33 Body mass index [BMI] 33.0-33.9, adult
CPT/HCPCS: 74177; 99283; 99284; J3490; Q9967

== ENCOUNTER 2024-06-11 18:11 | Emergency (ER) | payer BC ==
[2024-06-11] MEDS: methylPREDNISolone Sodium Succinate 125 MG/2 ML SDV IVPUSH ONE (19:49)
[2024-06-11 20:08] LABS: INFLUENZA A NAA POSITIVE (NEGATIVE); INFLUENZA B NAA NEGATIVE (NEGATIVE); RESPIRATORY SYNCYTIAL VIR NAA NEGATIVE (NEGATIVE)
[2024-06-11 20:09] LABS: CORONAVIRUS COVID-19 NAA POSITIVE (NEGATIVE)
== END 2024-06-11 20:23 | disposition home or self-care (01) ==
LOC: JP.ED 18:11
DX: U07.1 COVID-19 (principal); J44.89 Other specified chronic obstructive pulmonary disease; E66.9 Obesity, unspecified; Z86.16 Personal history of COVID-19; Z79.899 Other long term (current) drug therapy; Z91.040 Latex allergy status
CPT/HCPCS: 0241U; 71045; 71045-26; 96374; 99285-25; J2919

== ENCOUNTER 2024-06-14 06:39 | Emergency (ER) | payer BC ==
[2024-06-14 07:27] LABS: BASOPHILS ABSOLUTE AUTO 0.06 K/uL (0.00-0.10); BASOPHILS PERCENT AUTO 0.5 % (0.1-1.3); EOSINOPHILS ABSOLUTE AUTO 0.05 K/uL (0.00-0.40); EOSINOPHILS PERCENT AUTO 0.4 % (0.0-5.4); HEMATOCRIT 37.2 % (34.3-46.0); HEMOGLOBIN 12.8 g/dL (11.2-15.5); IMMATURE GRAN ABSOLUTE AUTO 0.45 K/uL (0.00-0.23); IMMATURE GRAN PERCENT AUTO 3.4 % (0.0-0.7); LYMPHOCYTES ABSOLUTE AUTO 2.01 K/uL (0.8-3.3); LYMPHOCYTES PERCENT AUTO 15.2 % (11.4-47.7); MEAN CORPUSCULAR HGB CONC 34.4 g/dL (31.6-35.5); MEAN CORPUSCULAR VOLUME 98.9 fL (81.4-99.0); MONOCYTES PERCENT AUTO 5.3 % (3.3-12.6); NEUTROPHILS ABSOLUTE AUTO 9.96 K/uL (1.0-7.6); NEUTROPHILS PERCENT AUTO 75.2 % (40.0-78.1); PLATELET COUNT,PLT 277 K/uL (130-375); RED BLOOD CELL COUNT 3.76 M/uL (3.77-5.24); WHITE BLOOD CELL COUNT,WBC 13.2 K/uL (3.2-11.0)
[2024-06-14] MEDS: predniSONE 20 MG Tab PO ONE (07:27)
[2024-06-14] MEDS: Albuterol/Ipratropium 3.0-0.5 MG/3 ML Neb Soln NEB ONE (07:27)
[2024-06-14 07:47] LABS: A/G RATIO 0.9 (1.2-2.2); ALANINE AMINOTRANSFERASE,ALT 15 U/L (12-78); ALBUMIN 3.7 g/dL (3.4-5.0); ALKALINE PHOSPHATASE 102 U/L (46-116); ASPARTATE AMNIOTRANSFERASE,AST 13 U/L (15-37); BILIRUBIN TOTAL 0.3 mg/dL (0.2-1.0); BLOOD UREA NITROGEN,BUN 17 mg/dL (7-18); CALCIUM 9.3 mg/dL (8.5-10.1); CARBON DIOXIDE,CO2 25 mmol/L (21-32); CHLORIDE,CL 102 mmol/L (100-108); CREATININE 0.9 mg/dL (0.6-1.0); EST CRCL DRUG DOSING (CG) 77.11 mL/min; ESTIMATED GFR 79 mL/min (>60); GLUCOSE RANDOM 100 mg/dL (74-106); PROTEIN TOTAL,TP 7.9 g/dL (6.4-8.2); SODIUM,NA 138 mmol/L (140-148)
== END 2024-06-14 08:33 | disposition home or self-care (01) ==
LOC: JP.ED 06:39
DX: J44.1 Chronic obstructive pulmonary disease with (acute) exacerbation (principal); J11.1 Influenza due to unidentified influenza virus with other respiratory manifestations; K21.9 Gastro-esophageal reflux disease without esophagitis; E66.9 Obesity, unspecified; F17.210 Nicotine dependence, cigarettes, uncomplicated; Z68.35 Body mass index [BMI] 35.0-35.9, adult; Z91.040 Latex allergy status; Z79.899 Other long term (current) drug therapy
CPT/HCPCS: 36415; 71045; 80053; 85025; 94640; 99285; J7512; J7620